=== PATIENT | male | born 1990 | race Caucasian/White ===

== ENCOUNTER 2019-05-01 02:53 | Emergency (ER) | payer MEDICAID ==
[~2019-05-01] VITALS: Ht 180.3 cm; Wt 72.7 kg
[~2019-05-01 02:53] MED LIST: NOCURR
[2019-05-01] MEDS ORDERED: DOXYCYCLINE HYCLATE 100 MG CAPSULE PO ONE (04:00)
[2019-05-01] MEDS ORDERED: ACETAMINOPHEN 500 MG TABLET PO ONE (04:00)
[2019-05-01] MEDS ORDERED: IBUPROFEN 600 MG TABLET PO ONE (04:00)
[2019-05-01 04:16] VITALS: BP 99/62
== END 2019-05-01 04:31 | disposition home or self-care (01) ==
LOC: EMS 02:53
DX: K13.0 Diseases of lips (principal); F17.210 Nicotine dependence, cigarettes, uncomplicated; F12.90 Cannabis use, unspecified, uncomplicated
CPT/HCPCS: 99406